=== PATIENT | male | born 1985 | race Caucasian/White ===

== ENCOUNTER 2022-06-04 10:55 | Emergency (ER) | payer BC, OTHER ==
[2022-06-04 11:06] VITALS: BP 113/74; PULSE 70; TEMP 98.6; BMI 26.2
[2022-06-04] MEDS ORDERED: SULFAMETHOXAZOLE/TRIMETHOPRIM 800MG/160MG D.S. TABLET PO ONE (11:14)
[2022-06-04] MEDS ORDERED: SULFAMETHOXAZOLE/TRIMETHOPRIM 800MG/160MG D.S. TABLET ONE (11:21)
== END 2022-06-04 11:37 | disposition home or self-care (01) ==
LOC: FER 10:55
DX: H00.021 Hordeolum internum right upper eyelid (principal)
CPT/HCPCS: 99283-25

== ENCOUNTER 2023-07-17 04:34 | Day surgery (SDC) | payer OTHER ==
[2023-07-16 09:43] VITALS: BMI 26.9
[2023-07-17 10:42] VITALS: TEMP 98
[2023-07-17 11:11] VITALS: BP 116/76; PULSE 70; RESP 17
== END 2023-07-17 11:25 | disposition home or self-care (01) ==
LOC: JASU-ENDO 04:34
PROVIDERS: ATTEND Internal Medicine Gastroenterology
PROC: 0DBL8ZX Excision of Transverse Colon, Via Natural or Artificial Opening Endoscopic, Diagnostic (ICD-10-PCS; principal; 2023-07-17 10:00)
DX: Z12.11 Encounter for screening for malignant neoplasm of colon (principal); K63.5 Polyp of colon; K63.89 Other specified diseases of intestine; K64.8 Other hemorrhoids; K92.1 Melena